=== PATIENT | female | born 1990 | race Two or more races ===

== ENCOUNTER 2021-03-07 19:16 | Emergency (ER) | payer OTHER ==
[~2021-03-07] VITALS: Ht 165.1 cm; Wt 116.1 kg
[2021-03-07] MEDS ORDERED: VISTARIL25 MG PO (23:09)
[2021-03-07] MEDS ORDERED: ZITHROMAX500 MG PO (23:09)
[2021-03-07] MEDS ORDERED: TUSNEL LIQUID178 ML PO (23:09)
[2021-03-07] MEDS ORDERED: MEDROLPACK PO (23:09)
[2021-03-07] MEDS ORDERED: PROAIR RESPICL90 MCG IH (23:09)
== END 2021-03-08 00:34 | disposition home or self-care (01) ==
LOC: ER 19:16
DX: U07.1 COVID-19 (principal); B34.9 Viral infection, unspecified; J11.1 Influenza due to unidentified influenza virus with other respiratory manifestations

== ENCOUNTER 2021-03-10 09:00 | Outpatient (CLI) | payer OTHER ==
[~2021-03-10 09:00] MED LIST: MEDROLPACK PO; PROAIR RESPICL90 MCG IH; TUSNEL LIQUID178 ML PO; VISTARIL25 MG PO; ZITHROMAX500 MG PO
== END 2021-03-10 11:00 | disposition home or self-care (01) ==
LOC: ASH CLINIC 09:00
PROVIDERS: ATTEND General Practice
DX: Z23 Encounter for immunization (principal); U07.1 COVID-19